=== PATIENT | male | born 2000 | race Two or more races ===

== ENCOUNTER 2024-12-29 15:53 | Emergency (ER) | payer BC ==
[~2024-12-29] VITALS: Ht 182.9 cm; Wt 95.3 kg
[2024-12-29 16:39] LABS: HEMATOCRIT 46.9 % (39.0-48.0); HEMOGLOBIN 15.8 g/dL (13-16.00); MEAN CELL VOLUME 87.4 fL (80.0-100.00); MEAN CORPUSCULAR HEMOGLOBIN 29.4 pg (27.00-32.0); MEAN CORPUSCULAR HGB CONC 33.6 g/dl (32.0-36.0); PLATELET COUNT 283 K/uL (150-450); RED BLOOD COUNT 5.37 M/uL (4.00-6.00); RED CELL DISTRIBUTION WIDTH 13.4 % (11.5-14.5)
[2024-12-29 18:24] LABS: ABG PH 7.416 (7.35-7.45); ABG PO2 101.7 mmHg (80-100); ABG pCO2 31.6 mmHg (35-45); BASE EXCESS -3.6 mmol/l; BICARBONATE 19.8 mmol/l (23-25); SaO2 97.8 %; Tco2 20.8 mmol/l; allen test SATISFACTORY; o2 21 %; puncture site RADIAL LEFT
== END 2024-12-29 18:24 | disposition home or self-care (01) ==
LOC: ER 15:53
PROVIDERS: Emergency Medicine
DX: F41.0 Panic disorder [episodic paroxysmal anxiety] (principal)